=== PATIENT | male | born 1960 | race Hispanic/Latino ===

== ENCOUNTER → 2023-10-27 08:38 | Outpatient (REF) | payer BC, SELFPAY | LOC: RCS 08:38 | PROVIDERS: ATTENDING PHYSICIAN Internal Medicine | DX: R00.2 Palpitations (principal) | CPT/HCPCS: 93005; 93225; 93226 ==

== ENCOUNTER → 2023-11-07 17:02 | Outpatient (REF) | payer BC, SELFPAY | LOC: RCS 17:02 | PROVIDERS: ATTENDING PHYSICIAN Internal Medicine | DX: R00.2 Palpitations (principal) | CPT/HCPCS: 93306 ==